=== PATIENT | female | born 1965 | race African-American/Black ===

== ENCOUNTER → 2020-05-21 | Outpatient (CLI) | payer BC ==
--- NOTE | 2020-05-21 16:58 | RAD ---
Left lower extremity venous duplex Doppler ultrasound HISTORY: Left leg pain. FINDINGS: No acute or occlusive DVT evident by grayscale sonography with compressibility, patent colo r Doppler blood flow and augmentation of flow the left common femoral vein, superficial femoral vein, profunda femoral vein or popliteal vein. Patent color Doppler blood flow without DVT of the left pos terior tibial peroneal veins in the calf. 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 Secondarily this could be a prominent venous bowel. IMPRESSION: Negative left leg for acute or occlusive DVT. There is a thin nonocclusive linear focus o f the left common femoral vein which is likely a fibrin strand from a prior resolved old DVT or a pro minent venous valve. Electronically signed by: Moises Em MD (05/21/2020 4:55 PM) [facility]
== END ==
LOC: US 15:55
PROVIDERS: ATTEND Family Medicine
DX: M79.605 Pain in left leg (principal); Z86.718 Personal history of other venous thrombosis and embolism
CPT/HCPCS: 93971